=== PATIENT | male | born 1995 | race Caucasian/White ===

== ENCOUNTER 2017-01-10 01:58 | Emergency (ER) | payer OTHER ==
--- NOTE | 2017-01-10 03:20 | PROVIDER DOCUMENTATION ---
HPI-General Adult - General Source: patient - History of Present Illness -Gen Adult Nature of Presenting Problems: Pt is a 21 yom who presents to ER with CC of a laceration on R hand, middle finger, snf up, 1.5cm long. Pt reports that he cut his finger on a broken glass bottle [employer]. Pt reports that he did bleed for a little while, but now his finger is numb above the laceration. No further complaints. Location of Pain/Injury: reports: hand(s) (middle finger ([place] up 3rd finger)) Pain Radiation: reports: no radiation Quality of Pain: reports: none Severity: reports: moderate Onset/Duration: reports: just prior to arrival Timing: reports: still present, improving Associated Symptoms: denies: anxiety, arm pain, back/neck pain, chest pain, constipation, cough, diaphoresis, diarrhea, dizziness, fatigue, genitourinary problems, headaches, joint pain, loss of appetite, muscle aches, sinus congestion/drainage, sensory/motor loss, syncope, vomiting, weakness, trouble walking <Pierce Kyle - Last Filed: 01/10/17 03:31> <Willie Nance - Last Filed: 01/10/17 04:11> - General Chief Complaint: Laceration[s] Stated Complaint: R HAND MIDDLE FINGER LAC Time Seen by Provider: 01/10/17 02:34 Allergies/Adverse Reactions: Patient Allergies Allergy/AdvReac Type Severity Reaction Status Date / Time No Known Allergies Allergy Verified 01/10/17 02:11 Home Medications: Home Medication List Medication Instructions Recorded Confirmed Last Taken Type No Home Medications 01/10/17 01/10/17 Unknown History Review of Systems - Adult - REVIEW OF SYSTEMS - ADULT Constitutional: denies: chills, fever, fatique, night sweats, weight gain, weight loss Eyes: reports: no symptoms reported Ears, Nose, Mouth & Throat: reports: no symptoms reported Cardiovascular: reports: no symptoms reported Respiratory: reports: no symptoms reported Gastrointestinal: reports: no symptoms reported Genitourinary: reports: no symptoms reported Musculoskeletal: reports: other (R hand, 3rd finger pain). denies: bone pain, back pain, frequent leg cramps, joint pain, joint swelling, muscle aches, muscle weakness, neck pain Integumentary: reports: other (1.5cm laceration). denies: hives, hair loss, itching, mole changes, nail changes, rash, skin sores/ulcer, skin thickening Neurological: reports: numbness (midway up 3rd finger). denies: dizziness/ vertigo, headache/migraines, paresthesia, seizure, syncope, tremors Psychiatric: reports: no symptoms reported Endocrine: reports: no symptoms reported Hematologic/Lymphatic: reports: no symptoms reported Allergic/Immunologic: reports: no symptoms reported All Other Systems: Reviewed and Negative <Pierce Kyle - Last Filed: 01/10/17 03:31> Past History - Adult - PAST MEDICAL HISTORY-ADULT Review of Records: reports: Nursing Assessment Review, Medications Reviewed - IMMUNIZATION STATUS Childhood Immunizations: See Nurse Assessment Flu Vaccine: See Nurse Assessment <Pierce Kyle - Last Filed: 01/10/17 03:31> Physical Exam-General - PHYSICAL EXAM-ADULT Initial Vital Signs Reviewed: Yes - CONSTITUTIONAL General Appearance: appears well, alert, no apparent distress. negative: mild distress, moderate distress, severe distress, cachetic, obese, thin, anxious, lethargic, slow to respond, obtunded, combative - MUSCULOSKELETAL Extremity: normal range of motion, non-tender, normal gait, other (1.5cm laceration to 3rd finger, snf up, on R hand). negative: erythema, inflammation, slow capillary refill, swelling, tenderness - SKIN Integumentary: normal color, normal turgor, warm/dry, laceration(s) (1.5cm to midshaft of 3rd finger on R hand). negative: abrasion(s), swelling, tenderness , warm - NEUROLOGIC Neurologic: grossly normal, no motor/sensory deficits, sensory deficit (R hand 3rd finger numb). negative: facial droop, focal weakness, motor weakness - PSYCHIATRIC Psych/Mental Status: normal mood/affect, normal thought content, normal thought process, oriented x 3. negative: disoriented x 3, anxious, disheveled, depressed affect, paranoid, tearful <Pierce Kyle - Last Filed: 01/10/17 03:31> Progress - PLAN OF CARE/RESULTS Progress/Plan/Lab Results: Vital Signs - 24 hr 01/10/17 02:02 Temperature 97.8 F Pulse Rate 90 Respiratory 20 Rate Blood Pressure 149/66 O2 Sat by Pulse 100 Oximetry Orders Category Date Time Status FINGER(S)-RIGHT [RAD] Stat Exams 01/10/17 03:04 Taken Lidocaine 1% [Xylocaine 1%] Med 01/10/17 03:34 Discontinued 20 ml .ROUTE .STK-MED ONE <Pierce Kyle - Last Filed: 01/10/17 03:31> Procedures - LACERATION/WOUND REPAIR/FB Right Volar Finger Wound Location: Other: rt middle finger Wound's Depth, Shape: superficial, irregular Wound Explored/Foreign Body: clean Irrigated with Saline?: Yes Anesthetic: 1% Volume of Anesthetic (ml's): 1 Wound Debrided: minimal Suture Size/Type: 4.0, Nylon Number of Sutures: 2 Layer Closure?: No Sterile Dressing Applied?: Yes Splint Applied?: No Sling Applied?: No Post Procedure Neurovascular Exam: Intact <Willie Nance - Last Filed: 01/10/17 04:11> Departure <Peirce Kyle - Last Filed: 01/10/17 03:31> - Departure Time of Disposition Order: 04:10 Certified Medical Emergency: Urgent <Willie Nance - Last Filed: 01/10/17 04:11> - Departure DIAGNOSIS: Finger laceration Qualifiers: Encounter type: initial encounter Qualified Code(s): S61.219A - Laceration without foreign body of unspecified finger without damage to nail, initial encounter Disposition: HOME 01 Condition: Good Attestation - Scribe Verification/Attestation Scribe:: Pierce Kyle Acting as Scribe for:: Willie Nance Scribe documention review:: This chart was documented by a scribe and accurately reflects the service the provider performed and the decisions made by the provider. <Pierce Kyle - Last Filed: 01/10/17 03:31> Physician Attestation
[2017-01-10] MEDS ORDERED: XYLOCAINE 1% ONE (03:34)
[2017-01-10] MEDS ORDERED: XYLOCAINE 1% INJ ONE (03:57)
[2017-01-10] MEDS ORDERED: DIPHTHERIA/TETANUS ADULT IM ONE (04:06)
[2017-01-10 04:39] VITALS: BP 134/66
--- NOTE | 2017-01-11 08:47 | Diag Imaging Result Document ---
PROCEDURE NAME: FINGER(S)-RIGHT - 01/10/2017 RIGHT THIRD FINGER, THREE VIEWS: FINDINGS: No fracture. No dislocation. IMPRESSION: No acute bony injury.
== END 2017-01-10 04:39 | disposition home or self-care (01) ==
LOC: ED 01:58
DX: S61.212A Laceration without foreign body of right middle finger without damage to nail, initial encounter (principal); R20.0 Anesthesia of skin; Z23 Encounter for immunization; W25.XXXA Contact with sharp glass, initial encounter
CPT/HCPCS: 73140; 90714